=== PATIENT | female | born 1965 | race African-American/Black ===

== ENCOUNTER 2016-11-14 21:32 | Emergency (ER) | payer SELFPAY ==
[2016-11-14] MEDS ORDERED: Hydrochlorothiazide 25 MG TAB ONE (21:50)
[2016-11-14] MEDS ORDERED: Lisinopril 5 MG TAB ONE (21:50)
[2016-11-14] MEDS ORDERED: HYDROcodone/Acetaminophen 10/325 mg Tablet ONE (21:55)
--- NOTE | 2016-11-14 23:40 | RAD ---
RIGHT KNEE FOUR VIEWS 11/14/16 No fracture or joint effusion was seen. The joint space is normal in width. Tiny osteophytes are see n but are very minimal. IMPRESSION: No acute finding. POS: HOME
== END 2016-11-14 22:29 | disposition home or self-care (01) ==
LOC: BURERS 21:32
DX: M25.561 Pain in right knee (principal); I10 Essential (primary) hypertension; M25.461 Effusion, right knee

== ENCOUNTER 2018-04-28 18:42 | Emergency (ER) | payer SELFPAY | END 2018-04-28 19:13 | disposition home or self-care (01) | LOC: BURERS 18:42 | DX: J20.9 Acute bronchitis, unspecified (principal); Z79.899 Other long term (current) drug therapy | CPT/HCPCS: 99282 ==

== ENCOUNTER 2018-08-19 20:43 | Emergency (ER) | payer SELFPAY ==
[2018-08-19] MEDS ORDERED: diphenhydrAMINE 25 MG CAP ONE (21:05)
[2018-08-19 21:21] LABS: #Monocytes 0.4 thou/uL (0.11-0.59); #Neutrophils 2.2 thou/uL (1.40-6.50); %Basophils 0.8 % (0.0-1.0); %Eosinophils 0.3 % (0.0-10.0); %Lymphocytes 28.3 % (21.0-51.0); %Monocytes 10.5 % (0.0-10.0); %Neutrophils 60.1 % (42.0-75.0); Hemoglobin 12.2 g/dL (12.0-16.0); Mean Corpuscular HGB CONC 33.4 g/dL (32.0-36.0); Mean Corpuscular Hemoglobin 28.4 pg (27.0-31.0); Mean Corpuscular Volume 85.2 fL (78.0-98.0); Mean Platelet Volume 6.8 fL (7.4-10.4); Platelet Count 218 thou/uL (130-400); RBC Distribution Width 11.9 % (11.5-14.5); White Blood Cell (WBC) Count 3.7 thou/uL (4.8-10.8)
[2018-08-19 21:33] LABS: ALT (SGPT) 9 U/L (8-55); AST (SGOT) 22 U/L (5-34); Alkaline Phosphatase 73 U/L (40-150); Anion Gap 12 mmol/L (10-20); BUN (Urea Nitrogen) 9 mg/dL (9.8-20.1); Bilirubin, Total 0.6 mg/dL (0.2-1.2); Calc. Creatinine Clearance 0 mL/min (70-130); Calcium 9.7 mg/dL (7.8-10.44); Carbon Dioxide 28 mmol/L (22-29); Chloride 102 mmol/L (98-107); Estimated GFR-MDRD Greater than 90; Globulin 4.8 g/dL (2.4-3.5); Glucose 89 mg/dL (70-105); Lipase 15 U/L (8-78); Protein, Total 8.8 g/dL (6.0-8.3); Sodium 139 mmol/L (136-145)
[2018-08-19] MEDS ORDERED: Potassium Chloride 20 MEQ TAB ONE (21:38)
[2018-08-19] MEDS ORDERED: Dexamethasone 4 MG TAB ONE (21:38)
== END 2018-08-19 21:45 | disposition home or self-care (01) ==
LOC: BURERS 20:43
DX: L50.9 Urticaria, unspecified (principal); I10 Essential (primary) hypertension; Z79.899 Other long term (current) drug therapy
CPT/HCPCS: 36415; 80053; 83690; 84443; 85025; 99283; J8540; Q0163

== ENCOUNTER 2019-03-18 21:18 | Emergency (ER) | payer BC, SELFPAY ==
[2019-03-18] MEDS ORDERED: Fentanyl 100 MCG/2 ML VIAL ONE (21:37)
[2019-03-18] MEDS ORDERED: Ibuprofen 200 MG TAB ONE (21:38)
[2019-03-18] MEDS ORDERED: Cyclobenzaprine 10 MG TAB ONE (21:38)
== END 2019-03-18 21:46 | disposition home or self-care (01) ==
LOC: BURERS 21:18
DX: M62.830 Muscle spasm of back (principal); I10 Essential (primary) hypertension; X50.0XXA Overexertion from strenuous movement or load, initial encounter
CPT/HCPCS: 99283; J3010

== ENCOUNTER 2019-08-07 19:48 | Emergency (ER) | payer BC ==
[2019-08-07] MEDS ORDERED: traMADol HCl 50 MG TAB ONE (20:11)
--- NOTE | 2019-08-07 23:46 | RAD ---
RIGHT GREAT TOE 08/07/19 Three views show no acute fracture. The bones and joints appear intact. There is a little irregularit y at the base of the proximal phalanx laterally that could be from an old injury. IMPRESSION: No acute bony changes. POS: HOME
== END 2019-08-07 20:30 | disposition home or self-care (01) ==
LOC: BURERS 19:48
DX: S90.111A Contusion of right great toe without damage to nail, initial encounter (principal); I10 Essential (primary) hypertension; Z79.899 Other long term (current) drug therapy; W22.8XXA Striking against or struck by other objects, initial encounter

== ENCOUNTER 2021-03-02 11:32 | Emergency (ER) | payer BC ==
[2021-03-02 11:59] LABS: #Monocytes 0.3 thou/uL (0.11-0.59); #Neutrophils 0.8 thou/uL (1.40-6.50); %Basophils 0.5 % (0.0-1.0); %Eosinophils 0.3 % (0.0-10.0); %Lymphocytes 48.9 % (21.0-51.0); %Monocytes 13.5 % (0.0-10.0); %Neutrophils 36.8 % (42.0-75.0); Hemoglobin 12.3 g/dL (12.0-16.0); Mean Corpuscular Hemoglobin 29.6 pg (27.0-31.0); Mean Corpuscular Volume 84.6 fL (78.0-98.0); Mean Platelet Volume 6.8 fL (7.4-10.4); Platelet Count 166 thou/uL (130-400); Red Blood Cell (RBC) Count 4.16 mill/uL (4.20-5.40); White Blood Cell (WBC) Count 2.1 thou/uL (4.8-10.8)
[2021-03-02] MEDS ORDERED: Ondansetron ODT 4 MG TAB ONE (12:03)
[2021-03-02] MEDS ORDERED: Nitroglycerin 0.4 MG TAB 1 EACH ONE ×2 (12:03→12:35)
[2021-03-02 12:14] LABS: ALT (SGPT) 12 U/L (8-55); AST (SGOT) 20 U/L (5-34); Albumin 3.5 g/dL (3.5-5.0); Alkaline Phosphatase 80 U/L (40-110); Anion Gap 10 mmol/L (10-20); BUN (Urea Nitrogen) 8 mg/dL (9.8-20.1); Bilirubin, Total 0.3 mg/dL (0.2-1.2); Calc. Creatinine Clearance 0 mL/min (70-130); Calcium 9.1 mg/dL (7.8-10.44); Carbon Dioxide 26 mmol/L (22-29); Chloride 106 mmol/L (98-107); Globulin 4.2 g/dL (2.4-3.5); Glucose 92 mg/dL (70-105); Potassium 3.4 mmol/L (3.5-5.1); Protein, Total 7.7 g/dL (6.0-8.3); Sodium 139 mmol/L (136-145)
[2021-03-02] MEDS ORDERED: Ondansetron PF 4 MG/2 ML Vial ONE (12:20)
[2021-03-02] MEDS ORDERED: Sodium Chloride 0.9% 1,000 ML IV SCH (13:30)
[2021-03-02] MEDS ORDERED: Ondansetron ODT 4 MG TAB PO SCH (13:30)
[2021-03-02] MEDS ORDERED: Ondansetron PF 4 MG/2 ML Vial IVP SCH (13:30)
[2021-03-02] MEDS ORDERED: Clopidogrel Bisulfate 75 MG TAB PO SCH (13:30)
[2021-03-02] MEDS ORDERED: Nitroglycerin 0.4 MG TAB (25 Tab Bottle) SL PRN (13:36)
[2021-03-02] MEDS ORDERED: Nitroglycerin 0.4 MG TAB 1 EACH SL PRN (13:45)
[2021-03-03 11:59] LABS: SARS-CoV-2 PCR by NAA Not Detected (NotDetected)
== END 2021-03-02 13:46 | disposition home or self-care (01) ==
LOC: BURERS 11:32
DX: R07.81 Pleurodynia (principal); Z20.822 Contact with and (suspected) exposure to COVID-19; I10 Essential (primary) hypertension
CPT/HCPCS: 71045; 80053; 83880; 84484; 85025; 85379; 93005; 94760; 96374; J2405; Q0162; U0003; U0005

== ENCOUNTER 2021-10-09 15:00 | Emergency (ER) | payer BC ==
[2021-10-09] MEDS ORDERED: Acetaminophen 500 MG TAB ONE (15:22)
[2021-10-09] MEDS ORDERED: Cyclobenzaprine 10 MG TAB ONE (15:22)
== END 2021-10-09 15:30 | disposition home or self-care (01) ==
LOC: BURERS 15:00
DX: G44.209 Tension-type headache, unspecified, not intractable (principal); I10 Essential (primary) hypertension
CPT/HCPCS: 99283

== ENCOUNTER 2021-11-25 19:51 | Emergency (ER) | payer BC ==
[2021-11-25] MEDS ORDERED: Nitroglycerin 0.4 MG TAB 1 EACH ONE (20:27)
[2021-11-25] MEDS ORDERED: Metoprolol Tartrate 5 MG/5 ML VIAL ONE (20:28)
[2021-11-25 20:38] LABS: #Lymphocytes 1.2 thou/uL (1.20-3.40); #Monocytes 0.4 thou/uL (0.11-0.59); #Neutrophils 2.2 thou/uL (1.40-6.50); %Eosinophils 0.7 % (0.0-10.0); %Lymphocytes 31.8 % (21.0-51.0); %Monocytes 11.2 % (0.0-10.0); %Neutrophils 55.3 % (42.0-75.0); Mean Corpuscular HGB CONC 35.9 g/dL (32.0-36.0); Mean Corpuscular Hemoglobin 30.2 pg (27.0-31.0); Mean Corpuscular Volume 84.2 fL (78.0-98.0); Mean Platelet Volume 6.7 fL (7.4-10.4); Platelet Count 224 thou/uL (130-400); RBC Distribution Width 11.2 % (11.5-14.5); Red Blood Cell (RBC) Count 3.97 mill/uL (4.20-5.40); White Blood Cell (WBC) Count 3.9 thou/uL (4.8-10.8)
[2021-11-25 20:51] LABS: ALT (SGPT) 9 U/L (8-55); AST (SGOT) 18 U/L (5-34); Albumin 3.7 g/dL (3.5-5.0); Alkaline Phosphatase 82 U/L (40-110); Anion Gap 14 mmol/L (10-20); BUN (Urea Nitrogen) 12 mg/dL (9.8-20.1); Bilirubin, Total 0.4 mg/dL (0.2-1.2); Calc. Creatinine Clearance 0 mL/min (70-130); Calcium 9.1 mg/dL (7.8-10.44); Carbon Dioxide 24 mmol/L (22-29); Chloride 108 mmol/L (98-107); Estimated GFR 92; Globulin 4.1 g/dL (2.4-3.5); Glucose 86 mg/dL (70-105); Protein, Total 7.8 g/dL (6.0-8.3); Sodium 143 mmol/L (136-145)
[2021-11-25] MEDS ORDERED: Potassium Chloride 20 MEQ TAB ONE (21:48)
[2021-11-25] MEDS ORDERED: hydrALAZINE 20 MG/ML VIAL ONE (22:09)
[2021-11-25 22:20] LABS: Magnesium 1.8 mg/dL (1.6-2.6)
== END 2021-11-26 00:30 | disposition short-term general hospital (02) ==
LOC: BURERS 19:51
DX: R07.9 Chest pain, unspecified (principal); I10 Essential (primary) hypertension; Z79.899 Other long term (current) drug therapy
CPT/HCPCS: 36415; 71045; 80053; 83735; 83880; 84484; 85025; 93005; 94760; 96374; 96375; J0360